=== PATIENT | female | born 1975 | race Caucasian/White ===

== ENCOUNTER 2020-12-15 11:34 | Emergency (ER) | payer MEDICAID ==
[~2020-12-15] VITALS: Ht 154.9 cm; Wt 59.9 kg
[2020-12-15 11:43] VITALS: BP 151/67
--- NOTE | 2020-12-15 11:47 | NUR ---
AMBULATED TO BED 4
--- NOTE | 2020-12-15 11:57 | NUR ---
DR SAID EXAMINING PT
--- NOTE | 2020-12-15 12:00 | NUR ---
45 Y/O FEMALE BIB SELF WITH C/O CHEST PAIN AND SOB FOR 2 DAYS WORSENING TODAY. STATES SHE WAS SEEN AT URGENT CARE THIS MORNING AND WAS REFERRED TO COME TO ED. PT STATES 7/10 PAIN UPON MOVEMENT. MEDHX: DENIES ALLERGIES: DENIES
--- NOTE | 2020-12-15 12:13 | NUR ---
XRAY AT BEDSIDE
--- NOTE | 2020-12-15 12:13 | NUR ---
PER ERMD 12 LEAD WAS DONE ON AND CAME BACK NSR AT 75 HR.
[2020-12-15 12:31] LABS: BASOPHILS % (AUTO) 0.4 % (0.0-2.0); EOSINOPHILS # (AUTO) 0.2 K/uL (0-0.4); EOSINOPHILS % (AUTO) 2.3 % (0.0-4.0); HEMATOCRIT 30.8 % (36-48); HEMOGLOBIN 9.6 g/dL (12.0-16.0); LYMPHOCYTES # (AUTO) 2.1 K/uL (2.5-16.5); LYMPHOCYTES % (AUTO) 23.8 % (20.5-51.1); MEAN CORPUSCULAR HEMOGLOBIN 21 pg (27-31); MEAN CORPUSCULAR HGB CONC 31 g/dL (33-37); MEAN CORPUSCULAR VOLUME 68.2 fL (80-94); MONOCYTES # (AUTO) 0.5 K/uL (0.8-1.0); MONOCYTES % (AUTO) 5.9 % (1.7-9.3); NEUTROPHILS # (AUTO) 5.8 K/uL (1.8-7.7); NEUTROPHILS % (AUTO) 67.6 % (42.2-75.2); PLATELET COUNT (AUTO) 421 K/uL (140-450); RED BLOOD CELL COUNT(AUTO) 4.51 MIL/uL (4.20-5.40); RED CELL DISTRIBUTION WIDTH 17.8 % (11.6-13.7); WHITE BLOOD COUNT (AUTO) 8.6 K/uL (4.8-10.8)
[2020-12-15 12:46] LABS: ALBUMIN 3.7 g/dL (3.4-5.0); ANION GAP 15.7 (8-16); CARBON DIOXIDE 24.2 mmol/L (21-32); CREATININE 0.6 mg/dL (0.6-1.3); POTASSIUM 3.9 mmol/L (3.5-5.1); TOTAL BILIRUBIN 0.2 mg/dL (0.0-1.0)
--- NOTE | 2020-12-15 13:25 | NUR ---
PT AMBULATED TO RESTROOM, STEADY GAIT
--- NOTE | 2020-12-15 13:27 | NUR ---
PT AMBULATED BACK TO BED
[2020-12-15] MEDS ORDERED: VIB100 PO (14:00)
[2020-12-15] MEDS ORDERED: FERR325E14 PO (14:00)
[2020-12-15] MEDS ORDERED: ALBU0.0912 IH (14:01)
[2020-12-15 14:19] VITALS: BP 127/66
--- NOTE | 2020-12-15 14:21 | NUR ---
Patient discharged with v/s stable. Written and verbal after care instructions given and explained. Patient alert, oriented and verbalized understanding of instructions. Ambulatory with steady gait. All questions addressed prior to discharge. ID band removed. Patient advised to follow up with PMD. Rx of DOXYCYCLINE, FERROUS, VENTOLIN HHN given. Patient educated on indication of medication including possible reaction and side effects. Opportunity to ask questions provided and answered.
== END 2020-12-15 14:35 | disposition home or self-care (01) ==
LOC: MED 11:34
DX: J18.9 Pneumonia, unspecified organism (principal); D50.9 Iron deficiency anemia, unspecified
CPT/HCPCS: 36415; 71045; 80053; 83880; 84484; 85025; 93005; 99285; Q0092